=== PATIENT | male | born 1990 | race Caucasian/White ===

== ENCOUNTER 2019-03-17 09:07 | Day surgery (SDC) | payer OTHER ==
[2019-03-17] MEDS ORDERED: LIDOCAINE 1% (MDV) 20 ML INJ ×2 (13:46→13:50)
[2019-03-17] MEDS ORDERED: MIDAZOLAM 1 MG/ML 2 ML INJ (13:51)
[2019-03-17] MEDS ORDERED: FENTAnyl 50 MCG/ML VIAL (13:51)
[2019-03-17] MEDS: HYDROCODONE/APAP (5/325) TAB PO (15:54)
== END 2019-03-17 15:55 | disposition home or self-care (01) ==
LOC: SDS 09:07
DX: Z45.2 Encounter for adjustment and management of vascular access device (principal); Z85.47 Personal history of malignant neoplasm of testis
CPT/HCPCS: 36590